=== PATIENT | male | born 1955 | race African-American/Black ===

== ENCOUNTER 2023-10-24 16:12 | Emergency (ER) | payer MEDICARE, MEDICAID ==
[~2023-10-24] VITALS: Ht 182.9 cm; Wt 91.0 kg
[2023-10-24 16:13] VITALS: O2SAT 97
[2023-10-24] MEDS: LIDOCAINE 5% PATCH TOP SCH (16:46)
[2023-10-24] MEDS: ACETAMINOPHEN 325MG TABLET PO ONE (16:47)
[2023-10-24] MEDS ORDERED: LIDO700A15 TP (17:11)
[2023-10-24] MEDS ORDERED: NAPR-1176 MT (17:11)
[2023-10-24 17:28] VITALS: BP 142/87; PULSE 76; RESP 18; TEMP 98.2
== END 2023-10-24 17:30 | disposition home or self-care (01) ==
LOC: ER 16:12
DX: M54.50 Low back pain, unspecified (principal); I10 Essential (primary) hypertension; E11.9 Type 2 diabetes mellitus without complications; Z86.59 Personal history of other mental and behavioral disorders; V99.XXXA Unspecified transport accident, initial encounter; Y93.89 Activity, other specified; Y92.89 Other specified places as the place of occurrence of the external cause; Y99.8 Other external cause status
CPT/HCPCS: 99283